=== PATIENT | male | born 1965 | race Caucasian/White ===

== ENCOUNTER 2018-03-15 11:21 | Inpatient (IN) ==
[2018-03-15] MEDS ORDERED: methylPREDNISolone 125 MG/2 ML VIAL IVP ONE (11:42)
[2018-03-15] MEDS ORDERED: Ipratropium/Albuterol Neb 3 ML IH ONE (11:42)
[2018-03-15 12:15] LABS: VBG HCO3 27 mEq/L (21-27); VBG PCO2 42 mmHg (41-51); VBG PH 7.42 pH Units (7.32-7.42); VBG PO2 39 mmHg (25-50)
[2018-03-15 12:18] LABS: Basophils % 0.3 %; Eosinophils # 0.1 K/mcL (0.0-0.6); Eosinophils % 0.3 %; Hematocrit 43.7 % (37.5-50.1); Hemoglobin 15.5 g/dL (12.9-16.9); Immature Granulocytes % 0.3 % (0-4); Lymphocytes # 2.6 K/mcL (0.6-4.6); Lymphocytes % 17.8 %; Mean Corpuscular HGB Conc 35.5 g/dL (31.6-35.5); Mean Corpuscular Hemoglobin 34.1 pg (28.0-33.3); Mean Corpuscular Volume 96.3 fL (83.0-100.0); Mean Platelet Volume 8.9 fL (9.4-12.4); Monocytes # 1.5 K/mcL (0.0-1.3); Neutrophils # 10.5 K/mcL (1.6-8.9); Platelet Count 469 K/mcL (140-400); Red Blood Count 4.54 M/mcL (4.19-5.50); Segmented Neutrophils % 71.3 %
--- NOTE | 2018-03-15 12:24 | Emergency Department Note ---
Disposition Clinical Impression: Hypoxia, Acute exacerbation of chronic obstructive airways disease Pneumonia Qualifiers: Aspiration pneumonia type: unspecified Laterality: right Lung location: lower lobe of lung Disposition: Admitted As Inpatient Condition: Fair Referrals: Rafiq Kenny CNP [Primary Care Provider] - Forms: ED Satisfaction Letter Time of Disposition: 14:12 SO[facility] - General Chief Complaint: ED Shortness of Breath/Dyspnea Stated Complaint: ASHOK Time Seen by Provider: 03/15/18 11:26 Source: patient Limitations: no limitations Nursing Notes Reviewed: Yes Vital Signs Reviewed: Yes - History of Present Illness Mr. Humphrey, 52-year-old male, presents from home for evaluation of dyspnea. Onset 3 weeks ago and progressive. He was evaluated at urgent care 1 week ago and prescribed doxycycline; his symptoms have worsened despite this outpatient antibiotic therapy. Last night, patient became markedly worse hence his presentation today. He reports dyspnea on exertion, change in cough is nonproductive (green sputum), chills, and orthopnea. Not improved with his home breathing treatments. Patient has a [id number] history of smoking, no home oxygen. No history of ACS, CHF, hepatic or renal impairment. ROS: Positive: As above. Sternal chest pain described as sharp and present only with cough; nonradiating. Negative: Fever, palpitations, diaphoresis, abdominal pains, unusual back pains , unilateral weakness/numbness/tingling - Related Data Home Medications Medication Instructions Recorded Confirmed Guaifenesin [Mucinex] 600 mg PO DAILY PRN 03/15/18 03/15/18 Allergies Allergy/AdvReac Type Severity Reaction Status Date / Time codeine Allergy Itching Verified 03/15/18 14:03 All systems ED: reviewed and negative except as stated. Review of Systems: As Per HPI Past Medical History - Past Medical History Medical history: Reports: no medical history Psychiatric history: Reports: no psych history - Social History Smoking Status: Current every day smoker Smokeless Tobacco Status: No Alcohol use: Reports: occasionally Drug use: Reports: none Physical Exam Vital Signs Reviewed General: Patient is alert, oriented, and in respiratory distress-accessory muscle usage, requiring supplemental oxygen to maintain saturation in the low 90s. Head: atraumatic, normocephalic Eye: normal appearance, no scleral icterus, no conjunctival injection ENT: mucous membranes tacky, normal external ear exam Neck: normal inspection, trachea midline, full ROM Chest: normal inspection, symmetric chest rise Respiratory: Poor respiratory effort. Prolonged expiratory phase. Bilateral breath sounds are diminished with scattered wheeze and bibasilar crackles. Cardiovascular: Regular rate and rhythm. No clicks, rubs, gallops, or murmors. Normal heart sounds. Abdomen: Bowel sounds present normoactive x-4 quadrants. Abdomen is soft, nondistended, and nontender. No guarding or rebound. Musculoskeletal: Spontaneously moving all extremities. Skin: warm, dry, intact. Neuro: Alert and oriented x4. Sensation light touch intact. Psych: Patient's affect is appropriate for situation. - General Limitations: no limitations General appearance: alert, in no apparent distress Course Course Narrative: EKG dated 03/15/18 at 11:30 interpreted as sinus tachycardia with a rate of 107. Normal intervals. Normal axis. Nonspecific ST-T changes. Compared to previous dated 09/06/2013 showing no acute ischemic changes or comparison. Patient continues to wheeze after 9 mg DuoNeb therapy. Chest x-ray is unremarkable. CTA chest performed secondary to patient's persistent dyspnea and tachycardia in the setting of an unremarkable chest x-ray. CTA chest shows patchy bronchiolitis as well as possible early right lower lobe pneumonia. Will begin empiric Levaquin. Patient continues to require supplemental oxygen of 4 L nasal cannula; he has no home oxygen. He is agreeable to admission for continued evaluation and management. I discussed the patient with the admitting hospitalist, Dr. Badillo, who agrees to accept the patient for continued evaluation and management. Chest X-Ray 03/15/18 11:42 IMPRESSION: 1. No active pulmonary disease. D/ / Charles Black MD / Charles Black MD Interpreting Provider: Charles Black MD Chest CTA 03/15/18 12:44 IMPRESSION: 1. Respiratory motion partially obscures subsegmental pulmonary branches predominantly in the left lower lobe. Within that limitation, no findings of pulmonary embolism are identified. 2. Patchy infectious bronchiolitis in both lungs, most prominent in the right lower lobe. 3. Questionable developing focal pneumonia in the right lower lobe. 4. Partial atelectasis of the lingula. 5. Mild bronchial wall thickening with patchy airway secretions especially in the right lower lobe, suggesting bronchitis. D/ / Milton Tinsley MD / Milton Tinsley MD Interpreting Provider: Milton Tinsley MD Vital Signs Temperature 98.2 F 03/15/18 11:23 Pulse Rate 117 03/15/18 11:23 Respiratory Rate 20 03/15/18 11:23 Blood Pressure 131/85 03/15/18 11:23 O2 Sat by Pulse Oximetry 90 03/15/18 11:23 Temperature 98.2 F 03/15/18 11:24 Pulse Rate 105 03/15/18 12:06 Respiratory Rate 20 03/15/18 12:06 Blood Pressure 119/79 03/15/18 12:06 O2 Sat by Pulse Oximetry 98 03/15/18 12:06 Oxygen Delivery Oxygen Delivery Aerosol Mask Shortness of Breath/Dyspnea - Lab Data Result diagrams: 03/15/18 12:01 03/15/18 12:01 Lab Results 03/15/18 03/15/18 03/15/18 Range/Units 12:01 12:01 12:01 WBC 14.7 H (4.3-11.1) K/mcL RBC 4.54 (4.19-5.50) M/mcL Hgb 15.5 (12.9-16.9) g/dL Hct 43.7 (37.5-50.1) % MCV 96.3 (83.0-100.0) fL MCH 34.1 H (28.0-33.3) pg MCHC 35.5 (31.6-35.5) g/dL RDW 13.0 (11.5-14.5) % Plt Count 469 H (140-400) K/mcL MPV 8.9 L (9.4-12.4) fL Immature Gran % 0.3 (0-4) % Seg Neutrophils % 71.3 % Lymphocytes % 17.8 % Monocytes % 10.0 % Eosinophils % 0.3 % Basophils % 0.3 % Neutrophils # 10.5 H (1.6-8.9) K/mcL Lymphocytes # 2.6 (0.6-4.6) K/mcL Monocytes # 1.5 H (0.0-1.3) K/mcL Eosinophils # 0.1 (0.0-0.6) K/mcL Basophils # 0.0 (0.0-0.2) K/mcL VBG pH (7.32-7.42) pH Units VBG pCO2 (41-51) mmHg VBG pO2 (25-50) mmHg VBG HCO3 (21-27) mEq/L Sodium 136 (136-145) mEq/L Potassium 4.2 (3.5-5.1) mEq/L Chloride 99 (98-107) mEq/L Carbon Dioxide 27 (23-29) mEq/L BUN 7 (6-20) mg/dL Creatinine 0.69 L (0.70-1.30) mg/dL Est GFR ( Amer) > 60 (> 60) Est GFR (Non-Af Amer) > 60 (> 60) BUN/Creatinine Ratio 10 (6-26) Glucose 93 (70-105) mg/dL Calculated Osmolality 280 (280-300) Lactic Acid 1.2 (0.5-2.2) mmol/L Calcium 9.9 (8.6-10.3) mg/dL Troponin I < 0.03 (< 0.04) ng/mL B-Natriuretic Peptide (Less than 100) pg/mL Urine Color (Yellow) Urine Clarity (Clear) Urine pH (5.0-8.0) pH Units Ur Specific [place] (1.010-1.025) Urine Protein (Neg-Trace) mg/dL Urine Glucose (UA) (Normal) mg/dL Urine Ketones (Negative) mg/dL Urine Blood (Negative) Urine Nitrite (Negative) Urine Bilirubin (Negative) Urine Urobilinogen (Normal) mg/dL Ur Leukocyte Esterase (Negative) Ur Culture Indicated? (NO) 03/15/18 03/15/18 03/15/18 Range/Units 12:01 12:13 12:33 WBC (4.3-11.1) K/mcL RBC (4.19-5.50) M/mcL Hgb (12.9-16.9) g/dL Hct (37.5-50.1) % MCV (83.0-100.0) fL MCH (28.0-33.3) pg MCHC (31.6-35.5) g/dL RDW (11.5-14.5) % Plt Count (140-400) K/mcL MPV (9.4-12.4) fL Immature Gran % (0-4) % Seg Neutrophils % % Lymphocytes % % Monocytes % % Eosinophils % % Basophils % % Neutrophils # (1.6-8.9) K/mcL Lymphocytes # (0.6-4.6) K/mcL Monocytes # (0.0-1.3) K/mcL Eosinophils # (0.0-0.6) K/mcL Basophils # (0.0-0.2) K/mcL VBG pH 7.42 (7.32-7.42) pH Units VBG pCO2 42 (41-51) mmHg VBG pO2 39 (25-50) mmHg VBG HCO3 27 (21-27) mEq/L Sodium (136-145) mEq/L Potassium (3.5-5.1) mEq/L Chloride (98-107) mEq/L Carbon Dioxide (23-29) mEq/L BUN (6-20) mg/dL Creatinine (0.70-1.30) mg/dL Est GFR ( Amer) (> 60) Est GFR (Non-Af Amer) (> 60) BUN/Creatinine Ratio (6-26) Glucose (70-105) mg/dL Calculated Osmolality (280-300) Lactic Acid (0.5-2.2) mmol/L Calcium (8.6-10.3) mg/dL Troponin I (< 0.04) ng/mL B-Natriuretic Peptide 42 (Less than 100) pg/mL Urine Color Yellow (Yellow) Urine Clarity Clear (Clear) Urine pH 6.5 (5.0-8.0) pH Units Ur Specific [place] 1.014 (1.010-1.025) Urine Protein Negative (Neg-Trace) mg/dL Urine Glucose (UA) Normal (Normal) mg/dL Urine Ketones Negative (Negative) mg/dL Urine Blood Negative (Negative) Urine Nitrite Negative (Negative) Urine Bilirubin Negative (Negative) Urine Urobilinogen Normal (Normal) mg/dL Ur Leukocyte Esterase Negative (Negative) Ur Culture Indicated? NO (NO)
[2018-03-15 12:31] LABS: Troponin I < 0.03 ng/mL (< 0.04)
[2018-03-15] MEDS ORDERED: Isovue-370 500 ML INFUS..BTL IV ONE (12:44)
[2018-03-15 12:45] LABS: BUN/Creatinine Ratio 10 (6-26); Blood Urea Nitrogen 7 mg/dL (6-20); Calcium 9.9 mg/dL (8.6-10.3); Carbon Dioxide 27 mEq/L (23-29); Chloride 99 mEq/L (98-107); Glucose 93 mg/dL (70-105); Osmolality,Calculated 280 (280-300); Potassium 4.2 mEq/L (3.5-5.1); Sodium 136 mEq/L (136-145); eGFR For African Americans > 60 (> 60); eGFR For Non-African Americans > 60 (> 60)
[2018-03-15] MEDS ORDERED: Ketorolac 15 MG/ML VIAL IVP ONE (12:47)
[2018-03-15 12:49] LABS: Bilirubin,Urine Negative (Negative); Blood,Urine Negative (Negative); Clarity,Urine Clear (Clear); Color,Urine Yellow (Yellow); Glucose,Urine (UA) Normal (Normal); Ketones,Urine Negative (Negative); Leukocyte Esterase,Urine Negative (Negative); Nitrite,Urine Negative (Negative); PH,Urine 6.5 pH Units (5.0-8.0); Protein,Urine Negative (Neg-Trace); Specific Gravity,Urine 1.014 (1.010-1.025); Urobilinogen,Urine Normal (Normal)
--- NOTE | 2018-03-15 14:18 | Emergency Department Note ---
Disposition Clinical Impression: Hypoxia, Acute exacerbation of chronic obstructive airways disease Pneumonia Qualifiers: Aspiration pneumonia type: unspecified Laterality: right Lung location: lower lobe of lung Disposition: Admitted As Inpatient Condition: Fair Referrals: Rafiq Kenny CNP [Primary Care Provider] - Forms: ED Satisfaction Letter General Adult HPI - General Chief complaint: ED Shortness of Breath/Dyspnea Stated complaint: ASHOK Time Seen by Provider: 03/15/18 11:26 Source: patient Limitations: no limitations - History of Present Illness Pain Scale: 0 - Related Data Home Medications Medication Instructions Recorded Confirmed Guaifenesin [Mucinex] 600 mg PO DAILY PRN 03/15/18 03/15/18 Allergies Allergy/AdvReac Type Severity Reaction Status Date / Time codeine Allergy Itching Verified 03/15/18 14:03 Past Medical History - Past Medical History Medical history: Reports: no medical history Psychiatric history: Reports: no psych history - Social History Smoking Status: Current every day smoker Smokeless Tobacco Status: No Alcohol use: Reports: occasionally Drug use: Reports: none Physical Exam - General Limitations: no limitations General appearance: alert, in no apparent distress Course Vital Signs Temperature 98.2 F 03/15/18 11:23 Pulse Rate 117 03/15/18 11:23 Respiratory Rate 20 03/15/18 11:23 Blood Pressure 131/85 03/15/18 11:23 O2 Sat by Pulse Oximetry 90 03/15/18 11:23 Temperature 98.2 F 03/15/18 11:24 Pulse Rate 95 03/15/18 14:00 Respiratory Rate 18 03/15/18 14:00 Blood Pressure 146/90 03/15/18 14:00 O2 Sat by Pulse Oximetry 90 03/15/18 14:00 Oxygen Delivery Oxygen Delivery Nasal Cannula Medical Decision Making - Lab Data Result diagrams: 03/15/18 12:01 03/15/18 12:01 Lab Results 03/15/18 03/15/18 03/15/18 Range/Units 12:01 12:01 12:01 WBC 14.7 H (4.3-11.1) K/mcL RBC 4.54 (4.19-5.50) M/mcL Hgb 15.5 (12.9-16.9) g/dL Hct 43.7 (37.5-50.1) % MCV 96.3 (83.0-100.0) fL MCH 34.1 H (28.0-33.3) pg MCHC 35.5 (31.6-35.5) g/dL RDW 13.0 (11.5-14.5) % Plt Count 469 H (140-400) K/mcL MPV 8.9 L (9.4-12.4) fL Immature Gran % 0.3 (0-4) % Seg Neutrophils % 71.3 % Lymphocytes % 17.8 % Monocytes % 10.0 % Eosinophils % 0.3 % Basophils % 0.3 % Neutrophils # 10.5 H (1.6-8.9) K/mcL Lymphocytes # 2.6 (0.6-4.6) K/mcL Monocytes # 1.5 H (0.0-1.3) K/mcL Eosinophils # 0.1 (0.0-0.6) K/mcL Basophils # 0.0 (0.0-0.2) K/mcL VBG pH (7.32-7.42) pH Units VBG pCO2 (41-51) mmHg VBG pO2 (25-50) mmHg VBG HCO3 (21-27) mEq/L Sodium 136 (136-145) mEq/L Potassium 4.2 (3.5-5.1) mEq/L Chloride 99 (98-107) mEq/L Carbon Dioxide 27 (23-29) mEq/L BUN 7 (6-20) mg/dL Creatinine 0.69 L (0.70-1.30) mg/dL Est GFR ( Amer) > 60 (> 60) Est GFR (Non-Af Amer) > 60 (> 60) BUN/Creatinine Ratio 10 (6-26) Glucose 93 (70-105) mg/dL Calculated Osmolality 280 (280-300) Lactic Acid 1.2 (0.5-2.2) mmol/L Calcium 9.9 (8.6-10.3) mg/dL Troponin I < 0.03 (< 0.04) ng/mL B-Natriuretic Peptide (Less than 100) pg/mL Urine Color (Yellow) Urine Clarity (Clear) Urine pH (5.0-8.0) pH Units Ur Specific [place] (1.010-1.025) Urine Protein (Neg-Trace) mg/dL Urine Glucose (UA) (Normal) mg/dL Urine Ketones (Negative) mg/dL Urine Blood (Negative) Urine Nitrite (Negative) Urine Bilirubin (Negative) Urine Urobilinogen (Normal) mg/dL Ur Leukocyte Esterase (Negative) Ur Culture Indicated? (NO) 03/15/18 03/15/18 03/15/18 Range/Units 12:01 12:13 12:33 WBC (4.3-11.1) K/mcL RBC (4.19-5.50) M/mcL Hgb (12.9-16.9) g/dL Hct (37.5-50.1) % MCV (83.0-100.0) fL MCH (28.0-33.3) pg MCHC (31.6-35.5) g/dL RDW (11.5-14.5) % Plt Count (140-400) K/mcL MPV (9.4-12.4) fL Immature Gran % (0-4) % Seg Neutrophils % % Lymphocytes % % Monocytes % % Eosinophils % % Basophils % % Neutrophils # (1.6-8.9) K/mcL Lymphocytes # (0.6-4.6) K/mcL Monocytes # (0.0-1.3) K/mcL Eosinophils # (0.0-0.6) K/mcL Basophils # (0.0-0.2) K/mcL VBG pH 7.42 (7.32-7.42) pH Units VBG pCO2 42 (41-51) mmHg VBG pO2 39 (25-50) mmHg VBG HCO3 27 (21-27) mEq/L Sodium (136-145) mEq/L Potassium (3.5-5.1) mEq/L Chloride (98-107) mEq/L Carbon Dioxide (23-29) mEq/L BUN (6-20) mg/dL Creatinine (0.70-1.30) mg/dL Est GFR ( Amer) (> 60) Est GFR (Non-Af Amer) (> 60) BUN/Creatinine Ratio (6-26) Glucose (70-105) mg/dL Calculated Osmolality (280-300) Lactic Acid (0.5-2.2) mmol/L Calcium (8.6-10.3) mg/dL Troponin I (< 0.04) ng/mL B-Natriuretic Peptide 42 (Less than 100) pg/mL Urine Color Yellow (Yellow) Urine Clarity Clear (Clear) Urine pH 6.5 (5.0-8.0) pH Units Ur Specific [place] 1.014 (1.010-1.025) Urine Protein Negative (Neg-Trace) mg/dL Urine Glucose (UA) Normal (Normal) mg/dL Urine Ketones Negative (Negative) mg/dL Urine Blood Negative (Negative) Urine Nitrite Negative (Negative) Urine Bilirubin Negative (Negative) Urine Urobilinogen Normal (Normal) mg/dL Ur Leukocyte Esterase Negative (Negative) Ur Culture Indicated? NO (NO) Attestation Statement - Attestation Attestation: I examined this patient and my medical decision-making was reviewed with the Resident Physician, Dr. Berman. I agree with the documented findings, disposition and treatment plan as described except to the extent set forth below. Patient is a 52-year-old black male with history of COPD, heavy tobacco smoker who is not oxygen requiring who presents to the emergency department with a seven-day history of upper respiratory symptoms, nonproductive cough, gradually increasing shortness of breath and wheezing. Patient arrives tachycardic and hypoxic on room air. Patient was placed on supplemental nasal cannula oxygen on arrival. Patient states he was seen at an urgent care had an outpatient chest x-ray performed which was negative at that time for pneumonia, started on doxycycline which she completed but is feeling no better. Patient also complains of some chest tightness associated with these symptoms and increased shortness of breath with ambulation. I agree with patient's physical exam findings as documented. Patient with some mild conversational dyspnea but no significant respiratory distress on assessment. Patient's EKG is sinus tach with no acute ST or T-wave changes. Patient had labs drawn and sent was started on a DuoNeb breathing treatment as well as IV steroids and chest x-ray obtained. Patient with a mild leukocytosis with left shift otherwise labs are within normal limits. Patient's chest x-ray showed no acute process. On reassessment following breathing treatment and steroids patient has persistent end expiratory wheezing but improved air exchange. Patient is still requiring nasal cannula oxygen to maintain O2 sats. Due to patient's tachycardia and obvious dyspnea with exacerbation of COPD we proceeded with a CTA of the chest for further evaluation. Patient has no PE on CTA but does have bilateral bronchiolitis worse on the right as well as an early right lower lobe infiltrate. We will go ahead and start the patient on IV antibiotics we will choose Levaquin as he failed outpatient doxycycline. Patient will be admitted for pneumonia, acute exacerbation of COPD and hypoxia. Patient's O2 sats are stable at this time on supplemental O2.
[2018-03-15] MEDS: Levofloxacin 750 MG/150 ML 750 MG/150 ML BAG IVPB ONE ×2 (14:31→16:26)
[2018-03-15] MEDS ORDERED: Acetaminophen 325 MG TABLET PO PRN (14:47)
[2018-03-15] MEDS ORDERED: Naloxone 0.4 MG/ML INJ IVP PRN (14:47)
[2018-03-15] MEDS ORDERED: 0.9 % Sodium Chloride 1,000 ML IVC ONE (14:56)
--- NOTE | 2018-03-15 15:07 | Internal Med History&Physical ---
Date of Encounter: 03/15/18 Time of Encounter: 14:00 Internal Medicine - H&P: HPI Chief complaint: SOB/Dyspnea Admitted From: Emergency Dept Plans for Post Hospital Care: Home History of present illness: Mr. Humphrey is a 52 year old male w/medical hx of tobacco abuse presents from the ED w/CC of SOB and dyspnea for the past 3 weeks which has become progressively worse. Pt. seen at Urgent Care one week ago and placed on PO doxycycline w/no relief. Reports SOB and cough much worse this morning. No alleviating factors for cough, SOB worse w/exertion. Cough producing yellow/ green sputum. Reports fever and chills. Smokes 1 PPD. reports having pneumonia 4 weeks ago. Pt. reports weakness/fatigue, SOB, cough, and reduced appetite but denies nausea, vomiting, diarrhea, constipation, chest pain, changes in vision, unusual bleeding, headache, abdominal pain, dizziness, lightheadedness, pre-syncope, or syncope. Past Med Surg Social Fam HX - Past Medical History Source: patient, old records reviewed, obtained from family Medical history: no medical history Psychiatric history: no psych history - Social History Smoking Status: Current every day smoker Packs per day: 1 PPD Smokeless Tobacco Status: No Alcohol use: occasionally Drug use: none Current living situation: Home, With Family Activity Level: Independent ambulation Recent Out of Country Travel Within the Last 8 Weeks: No Exposure or Possible Exposure to Illness During Travel: No - Family History Father Race: Family Member Ethnicity: Non- Living Status: Age at : 69 Cause of : Throat cancer Hx Family Cancer: Yes (Throat) Mother Race: Family Member Ethnicity: Non- Living Status: Age at : 64 Cause of : Alzheimer's disease Hx Family Neurologic Disorders: Yes (Alzheimers) Brother Race: Family Member Ethnicity: Non- Living Status: Still Living Hx Family Cardiac Disorders: Yes (HD) Sister Race: Family Member Ethnicity: Non- Living Status: Still Living Hx Family Musculoskeletal Disorders: Yes (Carpal tunnel) Internal Medicine - H&P: Meds Guaifenesin [Mucinex] 600 mg PO DAILY PRN 03/15/18 [History] 3 Allergy/AdvReac Type Severity Reaction Status Date / Time codeine Allergy Itching Verified 03/15/18 14:03 All Systems PM: A 10-system review of systems was performed and is negative for pertinent findings except as documented above in the HPI. - Constitutional Constitutional: as per HPI, anorexia, chills, fatigue, fever(s), weakness, no night sweats - EENT Eyes: no change in vision, no discharge, no pain, no photophobia Ears: no ear discharge, no ear pain, no tinnitus Nose, mouth and throat: no dysphagia, no nasal discharge, no neck pain, no sore throat - Breasts Breasts: as per HPI - Cardiovascular Cardiovascular ROS IM: as per HPI, dyspnea, dyspnea on exertion, no chest pain, no lightheadedness, no palpitations, no syncope - Respiratory Respiratory: as per HPI, dyspnea, dyspnea on exertion, change in phlegm color ( Yellow/green), pain with cough, no cough, no wheezing, no excessive phlegm production - Gastrointestinal Gastrointestinal: as per HPI, no abdominal pain, no diarrhea, no hematemesis, no hematochezia, no melena, no nausea, no vomiting - Genitourinary Genitourinary ROS male: as per HPI - Musculoskeletal Musculoskeletal ROS IM: no numbness, no tingling - Integumentary Integumentary IM: no rash, no unusual bruising - Neurological Neurological ROS: no confusion, no convulsions, no focal weakness, no numbness, no tingling, no tremor(s) - Psychiatric Psychiatric: as per HPI - Endocrine Endocrine IM: as per HPI - Hematologic/Lymphatic Hematologic/Lymphatic: no easy bruising - Allergic/Immunologic Allergic/Immunologic: as per HPI - Constitutional Vitals: Temp Pulse Resp BP Pulse Ox 98.2 F 95 18 146/90 90 03/15/18 11:24 03/15/18 14:00 03/15/18 14:00 03/15/18 14:00 03/15/18 14:00 General appearance: Present: cooperative, mild distress (SOB), A&O X 3, pleasant , answers questions appropriately - Head Head exam: Present: atraumatic, normocephalic - Eye Eye exam: Present: PERRL, conjuntiva pink, sclera anicteric Pupils: Present: PERRL - ENT ENT exam: Present: normal exam - Neck Neck exam general surgery: Present: normal inspection, supple, trachea midline. Absent: lymphadenopathy - Respiratory Respiratory exam: Present: accessory muscle use, decreased breath sounds, wheezes, tachypnea. Absent: rales, rhonchi - Cardiovascular Cardiovascular exam: Present: +S1, +S2, tachycardia. Absent: diastolic murmur, gallop, rubs, systolic murmur - GI/Abdominal GI/Abdominal exam: Present: normal bowel sounds, soft, no peritoneal signs. Absent: distended, tenderness - Rectal Rectal exam: Present: deferred - Additional comments: exam deferred. - Extremities Exam Extremities exam: Present: warm, radial pulses palpable and symmetrical. Absent : calf tenderness, cyanotic, pedal edema - Back Exam Back exam: Present: normal inspection - Neurological Exam Neurological exam: Present: CN II-XII intact, oriented X3, no focal deficits. Absent: pronater drift, facial droop, speech deficit - Psychiatric Psychiatric exam: Present: normal affect, normal mood - Skin Skin exam: Present: dry, intact Internal Med - H&P Results - Labs CBC & Chem 7: 03/15/18 12:01 03/15/18 12:01 Labs: Short CBC 03/15/18 Range/Units 12:01 WBC 14.7 H (4.3-11.1) K/mcL Hgb 15.5 (12.9-16.9) g/dL Hct 43.7 (37.5-50.1) % Plt Count 469 H (140-400) K/mcL Neutrophils # 10.5 H (1.6-8.9) K/mcL BMP 03/15/18 12:01 Sodium 136 Potassium 4.2 Chloride 99 Carbon Dioxide 27 BUN 7 Creatinine 0.69 L Glucose 93 Calcium 9.9 Cardiac Enzymes 03/15/18 Range/Units 12:01 Troponin I < 0.03 (< 0.04) ng/mL Urine 03/15/18 Range/Units 12:33 Urine Color Yellow (Yellow) Urine Clarity Clear (Clear) Urine pH 6.5 (5.0-8.0) pH Units Ur Specific [place] 1.014 (1.010-1.025) Urine Protein Negative (Neg-Trace) mg/dL Urine Glucose (UA) Normal (Normal) mg/dL - ABG Interpretation ABG results: 03/15/18 12:13 VBG pH 7.42 VBG pCO2 42 VBG pO2 39 VBG HCO3 27 - Impressions ITS Impressions Chest X-Ray 03/15/18 11:42 IMPRESSION: 1. No active pulmonary disease. D/ / Charles Black MD / Charles Black MD Interpreting Provider: Charles Black MD Chest CTA 03/15/18 12:44 IMPRESSION: 1. Respiratory motion partially obscures subsegmental pulmonary branches predominantly in the left lower lobe. Within that limitation, no findings of pulmonary embolism are identified. 2. Patchy infectious bronchiolitis in both lungs, most prominent in the right lower lobe. 3. Questionable developing focal pneumonia in the right lower lobe. 4. Partial atelectasis of the lingula. 5. Mild bronchial wall thickening with patchy airway secretions especially in the right lower lobe, suggesting bronchitis. D/ / Milton Tinsley MD / Milton Tinsley MD Interpreting Provider: Milton Tinsley MD - Diagnostic Studies Chest x-ray Additional comments: Impressions Chest X-Ray 03/15/18 11:42 IMPRESSION: 1. No active pulmonary disease. D/ / Charles Black MD / Charles Black MD Interpreting Provider: Charles Black MD CT scan - chest Additional comments: Impressions Chest CTA 03/15/18 12:44 IMPRESSION: 1. Respiratory motion partially obscures subsegmental pulmonary branches predominantly in the left lower lobe. Within that limitation, no findings of pulmonary embolism are identified. 2. Patchy infectious bronchiolitis in both lungs, most prominent in the right lower lobe. 3. Questionable developing focal pneumonia in the right lower lobe. 4. Partial atelectasis of the lingula. 5. Mild bronchial wall thickening with patchy airway secretions especially in the right lower lobe, suggesting bronchitis. D/ / Milton Tinsley MD / Milton Tinsley MD Interpreting Provider: Milton Tinsley MD - Assessment and plan (1) CAP (community acquired pneumonia) Current Visit: Yes Status: Acute Assessment and plan: Acute CAP. Pts reports having pneumonia 4 weeks ago. Pt. denies recent hospitalization. Worsening SOB and dyspnea w/fever over past several days. Blood cultures x2. Sputum culture. Respiratory Infection panel ordered. Tylenol 650 mg PO Q6HR PRN for fever control. Supplemental O2 with titration and SPO2 monitoring. DuoNeb's every 4 scheduled. Tessalon 200 mg by mouth 3 times a day for cough. IVPB azithromycin 500 mg daily for CAP and bronchitis infection coverage as well as ceftriaxone 2,000 mg daily. Will adjust abx coverage based on culture and panel results if warranted. Monitor pt. and f/u labs. Pt. discussed w/Dr. Badillo who agrees w/plan of care. Pt. is high risk for further morbidity d/t current CAP, bilateral bronchiolitis, acute exacerbation of COPD, current tobacco abuse, and sepsis criteria. Inpatient. Qualifiers: Laterality: right Lung location: lower lobe of lung Qualified Code(s): J18.1 - Lobar pneumonia, unspecified organism (2) Acute exacerbation of chronic obstructive airways disease Current Visit: Yes Status: Acute Assessment and plan: Acute exacerbation of COPD. Pt. is current smoker, smoking 1 PPD. CTA of chest shows PNA in RLL with some infiltrates on left as well as patchy bronchiolitis bilaterally. Solumedrol 40 mg IVP Q8HR. Supplemental O2 w/titration and SpO2 monitoring. DuoNebs Q4HR scheduled. (3) Bronchiolitis Current Visit: Yes Status: Acute Assessment and plan: Acute bronchiolitis. CTA of chest today shows patchy infectious bronchiolitis in both lungs, most prominent in the right lower lobe. IVPB azithromycin 500 mg daily ordered for CAP and infectious bronchitis coverage. IVPB ceftriaxone 2, 000 mg daily for CAP infection coverage. Sputum culture ordered. Respiratory infection panel ordered. Will adjust abx coverage based on results if warranted. (4) Sepsis Current Visit: Yes Status: Acute Assessment and plan: Acute sepsis criteria w/WBC of 14.7, HR of 117 bpm, RR of 20, and infection source of CAP and bronchitis. 1L 0.9 NS IV fluid bolus ordered. Lactic acid ordered. Blood cultures x2. Sputum culture. Respiratory Infection panel ordered. Tylenol 650 mg PO Q6HR PRN for fever control. Continuous cardiac telemetry. Supplemental O2 with titration and SPO2 monitoring. DuoNeb's every 4 scheduled. Tessalon 200 mg by mouth 3 times a day for cough. IVPB azithromycin 500 mg daily for CAP and bronchitis infection coverage as well as ceftriaxone 2,000 mg daily. Will adjust abx coverage based on culture and panel results if warranted. Monitor pt. and f/u labs closely for signs of septic shock. Qualifiers: Sepsis type: sepsis due to unspecified organism Qualified Code(s): A41.9 - Sepsis, unspecified organism (5) SOB (shortness of breath) Current Visit: Yes Status: Acute Assessment and plan: Acute SOB d/t COPD exacerbation, bronchitis, and pneumonia. Solumedrol 40 mg Q8HR IVP. DuoNebs Q4Hr scheduled. Supplemental O2 w/titration and SpO2 monitoring. Tessalon 200 mg TID for cough. Respiratory Infection panel and sputum culture ordered. (6) Weakness Current Visit: Yes Status: Acute Assessment and plan: Acute weakness w/current COPD exacerbation complicated by bronchitis and CAP. Falls/safety precautions, up with assist, and bed rest w/bathroom privileges w/ assist only. (7) Pleuritic chest pain Current Visit: Yes Status: Acute Assessment and plan: Acute pleuritic chest pain w/severe cough. Tessalon 200 mg TID for cough. DuoNebs Q4HR scheduled. Supplemental O2 w/titration and SpO2 monitoring. Respiratory therapy consult ordered w/flutter valve ordered w/Nebs. (8) DVT prophylaxis Current Visit: Yes Status: Acute Assessment and plan: Heparin 5,000 units SQ Q8 for DVT prophylaxis. Monitor pt. for signs of bleeding. - Time Spent With Patient Total time spent is greater than 50% in coordination of care (as documented) at patient's floor/unit and/or counseling patient: 25 - 35 minutes
[2018-03-15] MEDS ORDERED: Ipratropium/Albuterol Neb 3 ML ONE (15:23)
[2018-03-15] MEDS: Ipratropium/Albuterol Neb 3 ML IH SCH ×3 (15:25→23:37)
[2018-03-15 16:05] LABS: Adenovirus Not Detected (Not Detect); Bordetella Pertussis Not Detected (Not Detect); Chlamydophila pneumoniae Not Detected (Not Detect); Coronavirus 229E Not Detected (Not Detect); Coronavirus HKU1 Not Detected (Not Detect); Coronavirus NL63 Not Detected (Not Detect); Coronavirus OC43 Not Detected (Not Detect); Human Metapneumovirus Not Detected (Not Detect); Human Rhinovirus/Enterovirus Not Detected (Not Detect); Influenza A Subtype 2009 H1 Not Detected (Not Detect); Influenza A Untypeable Not Detected (Not Detect); Influenza B Not Detected (Not Detect); Mycoplasma pneumoniae Not Detected (Not Detect); Parainfluenza Virus 1 Not Detected (Not Detect); Parainfluenza Virus 2 Not Detected (Not Detect); Parainfluenza Virus 3 Not Detected (Not Detect); Parainfluenza Virus 4 Not Detected (Not Detect); Respiratory Syncytial Virus Not Detected (Not Detect)
[2018-03-15] MEDS: Azithromycin 500 MG in D5% in Water 250 ML IVPB SCH (18:25)
[2018-03-15] MEDS: *HR* Heparin 5,000 UNIT/ML VIAL SQ SCH (18:25)
[2018-03-15] MEDS: cefTRIAXone 2,000 MG in Water for inj. (sterile) 20 ML 20 ML IVP SCH (18:26)
[2018-03-15] MEDS: MethylPREDNISolone 40 MG/ML VIAL IVP SCH ×2 (18:43→23:47)
[2018-03-15] MEDS: Nicotine 14 MG PATCH.TD24 TD SCH (18:53)
[2018-03-15] MEDS: Benzonatate 100 MG CAPSULE PO PRN ×2 (18:55→23:54)
[2018-03-15] MEDS ORDERED: Ondansetron 4 MG/2 ML VIAL IVP PRN (18:58)
--- NOTE | 2018-03-15 19:02 | Electrocardiograph Report ---
[employer] Test Date: 2018-03-15 Pat Name: Yefri Humphrey Department: 103 Room: 2NE29 Gender: M Records Analysis Manager: MSC : [id number] Requested By: Carlos Manuel Berman Order Number: [id number] Reading MD: Ilir Montiel Measurements Intervals [place] Rate: 107 P: 72 [place]: 151 QRS: 58 QRSD: 89 T: 59 QT: 319 QTc: 382 Interpretive Statements SINUS TACHYCARDIA ABNORMAL RHYTHM ECG Electronically Signed On 03-15-2018 19:00:58 EDT by Ilir Montiel
[2018-03-15] MEDS: Ketorolac 15 MG/ML VIAL IVP PRN (23:47)
[2018-03-16] MEDS: *HR* Heparin 5,000 UNIT/ML VIAL SQ SCH ×4 (01:23→23:42)
[2018-03-16] MEDS ORDERED: *HR* FentaNYL (PF) 100 MCG/2 ML VIAL IVP ONE (01:45)
[2018-03-16] MEDS: Ipratropium/Albuterol Neb 3 ML IH SCH ×6 (03:51→23:24)
[2018-03-16 04:14] LABS: Basophils % 0.2 %; Hematocrit 40.2 % (37.5-50.1); Hemoglobin 14.1 g/dL (12.9-16.9); Immature Granulocytes % 0.4 % (0-4); Lymphocytes % 4.3 %; Mean Corpuscular HGB Conc 35.1 g/dL (31.6-35.5); Mean Corpuscular Hemoglobin 33.7 pg (28.0-33.3); Mean Corpuscular Volume 95.9 fL (83.0-100.0); Neutrophils # 22.3 K/mcL (1.6-8.9); Platelet Count 478 K/mcL (140-400); Red Blood Count 4.19 M/mcL (4.19-5.50); Red Cell Distribution Width 12.9 % (11.5-14.5); Segmented Neutrophils % 91.1 %
[2018-03-16 04:22] LABS: Basophils # 0.1 K/mcL (0.0-0.2); Lymphocytes # 1.1 K/mcL (0.6-4.6)
[2018-03-16 04:33] LABS: Alanine Aminotransferase 26 Units/L (7-52); Albumin/Globulin Ratio 1.3 (1.1-2.2); Alkaline Phosphatase 101 Units/L (34-104); Aspartate Amino Transferase 27 Units/L (13-39); BUN/Creatinine Ratio 16 (6-26); Bilirubin,Total 0.6 mg/dL (0.3-1.0); Blood Urea Nitrogen 10 mg/dL (6-20); Calcium 9.5 mg/dL (8.6-10.3); Carbon Dioxide 26 mEq/L (23-29); Chloride 102 mEq/L (98-107); Chol/HDL Ratio 2.4 (0-4.9); Cholesterol 182 mg/dL (< 200); Globulin 3.2 g/dL (2.4-3.5); Glucose 155 mg/dL (70-105); HDL Cholesterol 75 mg/dL (40-59); LDL Cholesterol,Calculated 97 mg/dL (0-99); Magnesium 1.9 mg/dL (1.6-2.6); Osmolality,Calculated 284 (280-300); Potassium 4.1 mEq/L (3.5-5.1); Sodium 136 mEq/L (136-145); Total Protein 7.2 g/dL (6.4-8.9); Triglycerides 51 mg/dL (< 150); eGFR For African Americans > 60 (> 60); eGFR For Non-African Americans > 60 (> 60)
[2018-03-16 05:04] LABS: Platelet Estimate Increased (Normal)
[2018-03-16] MEDS: GuaiFENesin Liq 200 MG/10 ML UDC PO SCH ×4 (05:33→23:42)
[2018-03-16] MEDS: MethylPREDNISolone 40 MG/ML VIAL IVP SCH ×3 (08:46→23:42)
[2018-03-16] MEDS: Nicotine 14 MG PATCH.TD24 TD SCH (08:46)
[2018-03-16] MEDS: Ketorolac 15 MG/ML VIAL IVP PRN (08:49)
[2018-03-16] MEDS: Benzonatate 100 MG CAPSULE PO PRN ×3 (08:49→23:52)
[2018-03-16 09:32] LABS: Estimated Average Glucose 117 mg/dl; Hemoglobin A1C 5.7 %
--- NOTE | 2018-03-16 13:30 | Internal Med Progress Note ---
Date of Encounter: 03/16/18 Time of Encounter: 13:28 - Assessment and plan (1) CAP (community acquired pneumonia) Current Visit: Yes Status: Acute Assessment and plan: Continue azithromycin and the ceftriaxone Weaning off O2 Likely discharged tomorrow Qualifiers: Laterality: right Lung location: lower lobe of lung Qualified Code(s): J18.1 - Lobar pneumonia, unspecified organism (2) Acute exacerbation of chronic obstructive airways disease Current Visit: Yes Status: Acute Assessment and plan: Still having diffuse bilateral wheezing continue IV steroids add guaifenesin (3) Tobacco abuse Current Visit: Yes Status: Acute Assessment and plan: Smoking cessation discussed (4) Sepsis Current Visit: Yes Status: Acute Assessment and plan: Sepsis resolved Qualifiers: Sepsis type: sepsis due to unspecified organism Qualified Code(s): A41.9 - Sepsis, unspecified organism (5) Chest pain Current Visit: Yes Status: Acute Assessment and plan: Severe chest pain from cough, will add pain medication Qualifiers: Chest pain type: pleurodynia Qualified Code(s): R07.81 - Pleurodynia - Time Spent With Patient Total time spent is greater than 50% in coordination of care (as documented) at patient's floor/unit and/or counseling patient: 25 - 35 minutes - Subjective Interval history: Mr. Humphrey is a 52 year old male w/medical hx of tobacco abuse presents from the ED w/CC of SOB and dyspnea for the past 3 weeks which has become progressively worse. Pt. seen at Urgent Care one week ago and placed on PO doxycycline w/no relief. Reports SOB and cough much worse this morning. No alleviating factors for cough, SOB worse w/exertion. Cough producing yellow/ green sputum. Reports fever and chills. Smokes [address] andio was negaive for PE but showed Patchy infectious bronchiolitis in both lungs, most prominent in the rightlower lobe. Patient is afebrile, oxygen improved her down to 2 L nasal cannula, shortness of breasts also improved. he does still have bilateral wheezing and bronchitis. Possible discharge tomorrow if we can wean off his oxygen - Constitutional Vitals: Temp Pulse Resp BP Pulse Ox 97.8 F 70 18 124/66 97 03/16/18 07:00 03/16/18 11:00 03/16/18 11:49 03/16/18 11:00 03/16/18 11:49 General appearance: Present: cooperative, mild distress (SOB), A&O X 3, pleasant , answers questions appropriately Exam: CONSTITUTIONAL: patient appears as an age appropriate male in no acute distress. EYES Clear sclerae, bilateral pupils are equal, reactive to light. EMOI. RESPIRATORY: No accessory muscle use, bilateral wheezing, no crackles/rales. CARDIOVASCULAR: Regular heart rate, normal S1 and S2, no murmurs GASTROINTESTINAL: bowel sounds present, soft, no tenderness. MUSCULOSKELETAL: Joints in normal range of motion, no clubbing, no edema, no cyanosis. Bilateral peripheral pulses 2+. NEUROLOGIC: CN II to XII are grossly intact, no focal neurological deficit. Internal Medicine: Result - Labs CBC & Chem 7: 03/16/18 03:45 03/16/18 03:45 Labs: Short CBC 03/16/18 Range/Units 03:45 WBC 24.5 H D (4.3-11.1) K/mcL Hgb 14.1 (12.9-16.9) g/dL Hct 40.2 (37.5-50.1) % Plt Count 478 H (140-400) K/mcL Neutrophils # 22.3 H (1.6-8.9) K/mcL BMP 03/16/18 03:45 Sodium 136 Potassium 4.1 Chloride 102 Carbon Dioxide 26 BUN 10 Creatinine 0.64 L Glucose 155 H Calcium 9.5 Liver Function 03/16/18 Range/Units 03:45 Total Bilirubin 0.6 (0.3-1.0) mg/dL AST 27 (13-39) Units/L ALT 26 (7-52) Units/L Alkaline Phosphatase 101 (34-104) Units/L Albumin 4.0 (3.5-5.7) g/dL Consult Discharge Plan - Plan Referrals: Heaven Manriquez, CASE ASSISTANT [Advanced Practice Nurse] - 03/24/18 8:30 am
[2018-03-16] MEDS: Azithromycin 500 MG in D5% in Water 250 ML IVPB SCH (15:08)
[2018-03-16] MEDS: *HR* HYDROcodone/Acet 5/325 mg TABLET PO PRN ×2 (15:08→20:29)
[2018-03-16] MEDS: cefTRIAXone 2,000 MG in Water for inj. (sterile) 20 ML 20 ML IVP SCH (17:15)
[2018-03-17] MEDS: Ipratropium/Albuterol Neb 3 ML IH SCH ×3 (03:25→11:16)
[2018-03-17 05:20] LABS: Basophils % 0.1 %; Hematocrit 37.8 % (37.5-50.1); Hemoglobin 13.1 g/dL (12.9-16.9); Immature Granulocytes % 0.6 % (0-4); Lymphocytes % 4.2 %; Mean Corpuscular HGB Conc 34.7 g/dL (31.6-35.5); Mean Corpuscular Hemoglobin 33.3 pg (28.0-33.3); Mean Corpuscular Volume 96.2 fL (83.0-100.0); Monocytes % 2.6 %; Platelet Count 447 K/mcL (140-400); Red Blood Count 3.93 M/mcL (4.19-5.50); Red Cell Distribution Width 13.2 % (11.5-14.5); Segmented Neutrophils % 92.5 %
[2018-03-17 05:31] LABS: Lymphocytes # 1.1 K/mcL (0.6-4.6); Monocytes # 0.7 K/mcL (0.0-1.3); Neutrophils # 23.1 K/mcL (1.6-8.9)
[2018-03-17 05:36] LABS: Alanine Aminotransferase 22 Units/L (7-52); Albumin 3.7 g/dL (3.5-5.7); Albumin/Globulin Ratio 1.2 (1.1-2.2); Alkaline Phosphatase 83 Units/L (34-104); Aspartate Amino Transferase 20 Units/L (13-39); BUN/Creatinine Ratio 17 (6-26); Bilirubin,Total 0.4 mg/dL (0.3-1.0); Blood Urea Nitrogen 10 mg/dL (6-20); Calcium 9.5 mg/dL (8.6-10.3); Carbon Dioxide 24 mEq/L (23-29); Chloride 108 mEq/L (98-107); Globulin 3.2 g/dL (2.4-3.5); Glucose 142 mg/dL (70-105); Osmolality,Calculated 287 (280-300); Potassium 4.5 mEq/L (3.5-5.1); Sodium 138 mEq/L (136-145); Total Protein 6.9 g/dL (6.4-8.9); eGFR For African Americans > 60 (> 60); eGFR For Non-African Americans > 60 (> 60)
[2018-03-17] MEDS: *HR* HYDROcodone/Acet 5/325 mg TABLET PO PRN ×2 (05:41→11:04)
[2018-03-17] MEDS: GuaiFENesin Liq 200 MG/10 ML UDC PO SCH (05:41)
[2018-03-17 05:52] LABS: Platelet Estimate Increased (Normal); Reactive Lymphocytes Present (Not Present); Toxic Granulation Present (Not Present)
[2018-03-17 07:16] VITALS: BP 119/70
[2018-03-17] MEDS: Nicotine 14 MG PATCH.TD24 TD SCH (09:07)
[2018-03-17] MEDS: MethylPREDNISolone 40 MG/ML VIAL IVP SCH (09:07)
[2018-03-17] MEDS: *HR* Heparin 5,000 UNIT/ML VIAL SQ SCH (09:07)
[2018-03-17] MEDS: Benzonatate 100 MG CAPSULE PO PRN (09:08)
[2018-03-17] MEDS ORDERED: Azithromycin 250 MG TABLET PO ONE (10:47)
--- NOTE | 2018-03-17 10:49 | Discharge Summary ---
- NOTES TO OUTPATIENT PROVIDER Notes to Outpatient Provider: Follow-up with primary care physician within the next 7 days. Complete 5 more days of cefdinir, taper prednisone 40 mg daily for 3 days, 30 mg for 3 days, 20 mg for 3 days and 10 mg for 3 days. Quit smoking. Needs pulmonary function testing within the next 4-6 weeks Date of Encounter: 03/17/18 Time of Encounter: 10:47 - Discharge Diagnosis (1) Acute exacerbation of chronic obstructive airways disease Priority: Primary Status: Acute Assessment and Plan: Acute COPD exacerbation secondary to sepsis due to community-acquired pneumonia unknown agent (2) Pleuritic chest pain Priority: Secondary Status: Acute (3) CAP (community acquired pneumonia) Priority: Primary Status: Acute Qualifiers: Laterality: right Lung location: lower lobe of lung Qualified Code(s): J18.1 - Lobar pneumonia, unspecified organism (4) SOB (shortness of breath) Priority: Primary Status: Acute (5) Weakness Priority: Secondary Status: Acute (6) Sepsis Priority: Primary Status: Acute Qualifiers: Sepsis type: sepsis due to unspecified organism Qualified Code(s): A41.9 - Sepsis, unspecified organism (7) Bronchiolitis Priority: Primary Status: Acute (8) Neuropathy Priority: Secondary Status: Acute (9) Tobacco abuse Priority: Secondary Status: Acute Hospital course: Mr. Humphrey is a 52 year old male w/medical hx of tobacco abusem HLD, neuropathy, never diagnosed with COPD, presented from the ED w/CC of SOB and dyspnea for the past 3 weeks which has become progressively worse. Pt. seen at Urgent Care one week ago and placed on PO doxycycline w/no relief. Reported SOB and worse cough . No alleviating factors for cough, SOB worse w/exertion. Cough producing yellow/green sputum. Reported fever and chills. Smokes 1 PPD. reported also having pneumonia 4 weeks ago. CTA of chest showed PNA in RLL with some infiltrates on left as well as patchy bronchiolitis bilaterally. Was started on Solumedrol O2 w/titration and DuoNebs Received one dose of Levaquin at the emergency room and then was switched to Rocephin and azithromycin. Has completed 3 days of 500 mg of azithromycin, is feeling much better. His white blood cell count has increased up to 25 but clinically the patient feels back to baseline, was given the option to stay another day with IV antibiotics but prefers to go home at this point since he symptoms have improved. Time spent discussing smoking cessation with patient: 3 to 10 minutes - Time Spent with Patient Total time spent providing and/or coordinating discharge services: Greater than 30 minutes (40 min) - Discharge Medications Prescriptions: Benzonatate [Tessalon] 100 mg PO TID PRN #30 capsule PRN Reason: Cough Cefdinir [Omnicef] 300 mg PO BID #10 capsule predniSONE [PredniSONE] 10 mg PO DAILY 12 Days tablet Home Medications: Guaifenesin [Mucinex] 600 mg PO DAILY PRN 03/15/18 [History] Benzonatate [Tessalon] 100 mg PO TID PRN #30 capsule 03/17/18 [Rx] Cefdinir [Omnicef] 300 mg PO BID #10 capsule 03/17/18 [Rx] predniSONE [PredniSONE] 10 mg PO DAILY 12 Days tablet 03/17/18 [Rx] Allergies/Adverse Reactions: 3 Allergy/AdvReac Type Severity Reaction Status Date / Time codeine Allergy Itching Verified 03/15/18 14:03 Date of admission: 03/15/18 15:55 Primary care physician: Rafiq Kenny, - Constitutional Vitals: Temp Pulse Resp BP Pulse Ox 98.1 F 67 18 119/70 97 03/17/18 07:12 03/17/18 07:12 03/17/18 07:48 03/17/18 07:12 03/17/18 09:26 General appearance: Present: cooperative, mild distress (SOB), A&O X 3, pleasant , answers questions appropriately - Head Head exam: Present: atraumatic, normocephalic - Eye Eye exam: Present: PERRL, conjuntiva pink, sclera anicteric Pupils: Present: PERRL - Neck Neck exam general surgery: Present: supple, trachea midline. Absent: lymphadenopathy - Respiratory Respiratory exam: Present: CTAB, wheezes (Minimal bilateral wheezing and rhonchi ). Absent: accessory muscle use, rales, rhonchi - Cardiovascular Cardiovascular exam: Present: RRR, +S1, +S2. Absent: diastolic murmur, gallop, rubs, systolic murmur - GI/Abdominal GI/Abdominal exam: Present: normal bowel sounds, soft, no peritoneal signs. Absent: distended, tenderness - Extremities Exam Extremities exam: Present: warm, radial pulses palpable and symmetrical. Absent : calf tenderness, cyanotic, pedal edema - Neurological Exam Neurological exam: Present: CN II-XII intact, oriented X3, no focal deficits. Absent: pronater drift, facial droop, speech deficit - Skin Skin exam: Present: dry, intact - Patient Status Disposition: Home, Self-Care Condition: Good Overall status at discharge: patient is progressing back to baseline - Discharge Instructions Instructions: Bronchiolitis (DC), Bronchiolitis (GEN), Pneumonia in Children ( DC), Pneumonia in Children (GEN), Community-acquired Pneumonia (DC), Community- acquired Pneumonia (GEN), Community-Acquired Pneumonia, Wire Winding Machine Tender (GEN) Follow Up With: Heaven Manriquez CNP [Advanced Practice Nurse] - 03/24/18 8:30 am Additional Instructions: Follow-up with primary care physician within the next 7 days. Complete 5 more days of cefdinir, taper prednisone 40 mg daily for 3 days, 30 mg for 3 days, 20 mg for 3 days and 10 mg for 3 days. Quit smoking - Diet and Activity Activity: increase activity as tolerated Diet: low fat, low cholesterol
== END 2018-03-17 13:18 | disposition home or self-care (01) | DRG 720 ==
LOC: 2NENU 11:21 → EMEROO 11:21 → 2NENU 16:48
PROVIDERS: ADMIT Hospitalist; ATTEND Hospitalist